=== PATIENT | male | born 1965 | race Caucasian/White ===

== ENCOUNTER 2017-07-02 09:43 | Emergency (ER) | payer SELFPAY ==
[~2017-07-02] VITALS: Ht 177.8 cm; Wt 89.0 kg
[~2017-07-02 09:43] MED LIST: IBUP600T26 PO; TRAM50TA PO
[2017-07-02 09:48] VITALS: BP 177/101; PULSE 117; RESP 24; TEMP 97.6; O2SAT 95
[2017-07-02 10:20] VITALS: BP 199/102; PULSE 106; RESP 18; TEMP 97.8; O2SAT 95
[2017-07-02 11:04] VITALS: BP 168/96; PULSE 96; RESP 16; O2SAT 95
[2017-07-02] MEDS ORDERED: methylPREDNISolone SOD SUCC 125 MG/2 ML VIAL IM ONE (11:15)
[2017-07-02] MEDS ORDERED: LIDOCAINE HCL 1% 50 ML VIAL XX ONE (11:15)
[2017-07-02] MEDS: RESP: ALBUTEROL 2.5 MG/IPRATROPIUM 0.5 MG NEB (SCH) INH ×2 (11:22→11:23)
[2017-07-02] MEDS ORDERED: LIDOCAINE HCL 1% 20 ML VIAL ONE (11:23)
--- NOTE | 2017-07-02 11:30 | PD ---
HPI Chief Complaint: Respiratory Symptoms Time Seen by Provider: 11:12 Travel History International Travel<30 days: No Contact w/Intl Traveler<30days: No Traveled to known affect area: No History of Present Illness HPI Patient presents with complaints of shortness of breath and nonproductive cough for 1 day. Denies nausea vomiting diarrhea or fever. No new rashes. He is a smoker. No previous diagnosis of COPD. Does not have a PCP. Concerns of elevated blood pressure. Currently on no medications. PFSH Past Medical History Autoimmune Disease: No Blood Disorders: No Bipolar Disorder: Yes Heart Rhythm Problems: No Cancer: No Cardiac Catheterization: No Cardiovascular Problems: Yes High Cholesterol: No Chest Pain: Yes Congestive Heart Failure: No Diabetes: No Diminished Hearing: No Endocrine: No Genitourinary: Yes Headaches: Yes Hypertension: Yes Kidney Stones: Yes Musculoskeletal: No Neurologic: No Psychiatric: Yes (BIPOLAR) Reproductive: No Respiratory: Yes Immunizations Current: Yes Myocardial Infarction: Yes Thyroid Disease: No Influenza Vaccination: No PNEUMOCCOCAL Vaccine (Year): 2 ?: Not Past Surgical History Abdominal Surgery: Yes (SIGMOIDOSCOPY WITH REMOVAL OF FOREIGN BODY (THIS ADMIT) ) Coronary Artery Bypass Graft: No Family History Family Myocardial Infarction: Yes (DAD FROM HEART ATTACK) Social History Alcohol Use: Yes (TWO BEERS DAILY) Tobacco Use: Yes (1 PPD) Substance Use: No Allergies-Medications (Allergen,Severity, Reaction): Coded Allergies: codeine (Unverified Allergy, Severe, Anaphylaxis, 07/02/17) Reported Meds & Prescriptions Reported Meds & Active Scripts Active No Active Prescriptions or Reported Medications Review of Systems General / Constitutional: No: Fever Eyes: No: Visual changes HENT: No: Headaches Cardiovascular: No: Chest Pain or Discomfort Respiratory: Positive: Shortness of Breath Gastrointestinal: No: Abdominal Pain Genitourinary: No: Dysuria Musculoskeletal: No: Pain Skin: No Rash Neurologic: No: Weakness Psychiatric: No: Depression Endocrine: No: Polydipsia Hematologic/Lymphatic: No: Easy Bruising Physical Exam Narrative GENERAL: Well-nourished, well-developed patient. SKIN: Focused skin assessment warm/dry. HEAD: Normocephalic. EYES: No scleral icterus. No injection or drainage. NECK: Supple, trachea midline. No JVD or lymphadenopathy. CARDIOVASCULAR: Regular rate and rhythm without murmurs, gallops, or rubs. RESPIRATORY: Breath sounds are coarse and decreased in all blackman. No accessory muscle use. GASTROINTESTINAL: Abdomen soft, non-tender, nondistended. MUSCULOSKELETAL: No cyanosis, or edema. BACK: Nontender without obvious deformity. No CVA tenderness. Data Data Last Documented VS Vital Signs Date Time Temp Pulse Resp B/P (MAP) Pulse Ox O2 Delivery O2 Flow Rate FiO2 07/02/17 12:02 108 20 156/94 (114) 94 Room Air 07/02/17 10:20 97.8 Orders Orders Methylprednisolone So Succ Inj (Solumedr (07/02/17 11:15) Albuterol-Ipratropium Neb (Duoneb Neb) (07/02/17 11:15) Ceftriaxone Inj (Rocephin Inj) (07/02/17 11:15) Lidocaine 1% Inj (50 Ml) (Xylocaine 1% I (07/02/17 11:15) Lidocaine 1% Inj (Xylocaine 1% Inj) (07/02/17 11:23) Chest, Single Ap (07/02/17 ) MDM Medical Decision Making Medical Screen Exam Complete: Yes Emergency Medical Condition: Yes Differential Diagnosis COPD exacerbation, elevated blood pressure, tobacco abuse, bronchitis, pneumonia Narrative Course Assessment and plan discussed with patient at bedside. Diagnosis Primary Impression: COPD exacerbation Additional Impression: Hypertension Qualified Codes: I10 - Essential (primary) hypertension Patient Instructions: General Instructions Additional Instructions: Encourage smoking cessation, encouraged to get a primary care provider, encouraged a blood pressure log for evaluation at follow-up. Return to the emergency room with any onset of new symptoms. Med/Other Pt SpecificInfo: Prescription(s) given Scripts Prednisone (21) 10 mg tab Dose Pack (Prednisone (21) 10 mg tab Dose Pack) 10 Mg Pack 10 MG PO DIRECTED for Inflammation, #1 DSPK 0 Refills Prov: Wei Figueroa MD 07/02/17 Azithromycin (Zithromax) 500 Mg Tab 500 MG PO DAILY for Infection for 7 Days, #7 TAB 0 Refills Prov: Wei Figueroa MD 07/02/17 Lisinopril-Hctz (Zestoretic) 20-12.5 Mg Tab 1 TAB PO DAILY for Blood Pressure Management, #30 TAB 0 Refills Prov: eWi Figueroa MD 07/02/17 Disposition: 01 DISCHARGE HOME Condition: Good Wei Figueroa MD Jul 02, 2017 11:30
[2017-07-02 12:02] VITALS: BP 156/94; PULSE 108; RESP 20; O2SAT 94
--- NOTE | 2017-07-02 12:03 | RADRPT ---
EXAM DATE/TIME: 07/02/2017 11:48 [facility] COMPARISON: CHEST SINGLE AP, August 13, 2014, 7:57. INDICATIONS : Short of breath, cough, high blood pressure, posterior chest pain MEDICAL HISTORY : Hypertension. SURGICAL HISTORY : None. ENCOUNTER: Initial ACUITY: 1 day PAIN SCORE: 5/10 LOCATION: Bilateral chest FINDINGS: A single view of the chest demonstrates the lungs to be symmetrically aerated without evidence of mas s, infiltrate or effusion. The cardiomediastinal contours are unremarkable. Osseous structures are intact. Costicartilage calcification is present. There are overlying electrocardiogram leads. There a re old healed left-sided rib fractures. CONCLUSION: No acute disease. Contreras Guardado MD on July 02, 2017 at 12:00 Board Certified Radiologist. This report was verified electronically.
[2017-07-02] MEDS ORDERED: PRED10PA PO (12:15)
[2017-07-02] MEDS ORDERED: LISI-586 PO (12:15)
[2017-07-02] MEDS ORDERED: ZITH500T PO (12:15)
== END 2017-07-02 12:32 | disposition home or self-care (01) ==
LOC: PHED 09:43
DX: J44.1 Chronic obstructive pulmonary disease with (acute) exacerbation (principal); I10 Essential (primary) hypertension; F31.9 Bipolar disorder, unspecified; I25.2 Old myocardial infarction; F17.200 Nicotine dependence, unspecified, uncomplicated
CPT/HCPCS: 71045; 94640; 94664; 96372; 99283; J0696; J2930